=== PATIENT | male | born 1980 | race Caucasian/White ===

== ENCOUNTER 2022-05-23 06:00 | Emergency (ER) | payer BC ==
[2022-05-23] MEDS ORDERED: Ondansetron 4 MG/2 ML SDV IVPUSH ONE (06:19)
[2022-05-23] MEDS ORDERED: Morphine 4 MG/ML Syringe IVPUSH ONE (06:19)
[2022-05-23] MEDS ORDERED: Sodium Chloride 0.9% 1,000 ML IV SCH (06:30)
[2022-05-23] MEDS ORDERED: Ketorolac 30 MG/ML SDV IVPUSH STA (07:23)
[2022-05-23] MEDS ORDERED: Tamsulosin 0.4 MG Cap.ER PO ONE (07:23)
[2022-05-23] MEDS ORDERED: HYDROmorphone 0.5 MG/0.5 ML Syringe IVPUSH ONE (07:23)
== END 2022-05-23 09:15 | disposition home or self-care (01) ==
LOC: JD.ED 06:00
DX: N13.2 Hydronephrosis with renal and ureteral calculous obstruction (principal)
CPT/HCPCS: 36415; 74176; 80053; 81001; 85025; 96361; 96374; 96375; 99284; A9270; J1170; J1885; J2270; J2405; J7030; 99283